=== PATIENT | female | born 1985 | race Caucasian/White ===

== ENCOUNTER 2023-04-15 20:45 | Emergency (ER) | payer BC, SELFPAY ==
--- NOTE | 2023-04-15 20:53 | CRLHL7_ITS ---
For Patients: As a result of the Cures Act, medical imaging exams and procedure reports are released immediately into your electronic medical record. You may view this report before your referring provider. If you have questions, please contact your health care provider. INDICATION: Cough for 1 month TECHNIQUE: Chest radiograph 2 views COMPARISON: 02/11/2020 FINDINGS: Mediastinum: The mediastinum is normal in appearance. The heart silhouette is normal in size and morphology. Lung: Both lungs are unremarkable in appearance. No sign of pleural effusion seen. No pneumothorax is identified. Bone and Soft tissue: Unremarkable for age. IMPRESSION: 1. No acute cardiopulmonary disease is seen. Dictated by: Bienvenido Boswell MD @ 04/15/2023 21:43:34 (Electronically Signed)
[2023-04-15 20:54] VITALS: BP 146/90; PULSE 89; RESP 18; TEMP 36.9; O2SAT 94; BMI 25.1
[2023-04-15 21:43] LABS: PCR FLU A Negative PCR FLU A (Negative); PCR FLU B Negative PCR FLU B (Negative); PCR RSV Negative PCR RSV (Negative)
[2023-04-15 21:44] LABS: SARS PCR* Negative SARS-CoV-2 (Negative)
--- NOTE | 2023-04-15 22:23 | ED_ITS ---
HPI - General Adult General Chief complaint: Cough Stated complaint: Cough Time Seen by Provider: 04/15/23 21:46 Source: patient Mode of arrival: ambulatory Limitations: no limitations History of Present Illness HPI narrative: 37-year-old female presenting to the ED today with concerns of congestion, mucus in her throat, cough: All of these things have been going on for about 1 year. She also describes a burning sensation in her chest that comes and goes. Unsure if this is related to eating or not. None of her symptoms seem to be related to physical activity. She states that recently, in the last month, she feels like she had a cold as her symptoms became worse. She did not have health insurance for quite some time so she has not presented for an evaluation until today. She states that the cough is worse 1st thing in the morning where she has to clear up her throat and she has a lot of mucus that she spits up. Nothing seems to make it better or worse, she has not tried any medications for her symptoms. She complains of a runny nose and congestion. She denies any changes in her appetite, no difficulty sleeping, no unintended weight changes. She is not on any daily medications and has no known chronic medical diagnoses. Patient denies any tobacco use. Related Data Allergies Allergy/AdvReac Type Severity Reaction Status Date / Time No Known Drug Allergies Allergy Verified 04/15/23 20:57 Review of Systems Status of ROS: Reports: 10 or more systems reviewed and unremarkable except as noted in History and below Exam Narrative: Exam Narrative: Well-nourished well-developed patient in no acute distress. Alert and oriented. Answers questions appropriately. Mood and affect are appropriate. Thoughts are goal oriented and rational. No tangential or magical thinking noted. Patient speaks in full sentences without needing to catch her breath. He does not sound congested. HEENT: Normocephalic atraumatic. Pupils are equally round reactive to light. Extraocular muscles are intact. Conjunctivae are moist without any icterus noted. Moist mucous membranes. Posterior pharynx is normal. Neck is soft without any lymphadenopathy or thyromegaly. No masses are appreciated. Patient can breathe through each nostril without difficulty. She has no tenderness across her face or teeth. Cardiovascular: Heart is regular rate and rhythm S1 and S2 are present without any murmurs. Lungs: Clear to auscultation bilaterally no wheezes rhonchi or rales are appreciated. Patient takes deep breaths without any discomfort. Abdomen: Soft and nontender nondistended with normal bowel sounds. Extremities: Bilateral lower extremities are without edema. Skin: Well perfused without any obvious rashes. Const: Vital Signs, click to edit/add: Vital Signs - 24 hr 04/15/23 20:54 Temperature 98.5 F Pulse Rate [Right Pulse Oximeter] 89 Respiratory Rate 18 Blood Pressure [Ri ght Upper Arm] 146/90 H Pulse Oximetry 94 Oxygen Delivery Me thod Room Air Course Course ED Course: Chest x-ray, read by me, does not show any acute pathology. Triple swab is negative. Vital Signs Vital signs: Initial Vital Signs Temperature 98.5 F 04/15/23 20:54 Temperature Source Temporal Artery Scan 04/15/23 20:54 Pulse Rate 89 04/15/23 20:54 Pulse Rhythm Regular 04/15/23 20:54 Pulse Strength 3+ Normal 04/15/23 20:54 Respiratory Rate 18 04/15/23 20:54 Blood Pressure 146/90 H 04/15/23 20:54 Blood Pressure Mean 108 H 04/15/23 20:54 Blood Pressure Position Sitting 04/15/23 20:54 Pulse Oximetry 94 04/15/23 20:54 Oxygen Delivery Method Room Air 04/15/23 20:54 Vital Signs Temperature 98.5 F 04/15/23 20:54 Pulse Rate 89 04/15/23 20:54 Respiratory Rate 18 04/15/23 20:54 Blood Pressure 146/90 H 04/15/23 20:54 Pulse Oximetry 94 04/15/23 20:54 Oxygen Delivery Method Room Air 04/15/23 20:54 Temperature 98.5 F 04/15/23 20:54 Pulse Rate 89 04/15/23 20:54 Respiratory Rate 18 04/15/23 20:54 Blood Pressure 146/90 H 04/15/23 20:54 Pulse Oximetry 94 04/15/23 20:54 Oxygen Delivery Method Room Air 04/15/23 20:54 Medical Decision Making MDM Narrative Medical decision making narrative: 37-year-old female with cough that is worse 1st thing in the morning, burning in her chest and congestion. I do think her symptoms are likely caused by reflux. The other possibility would be seasonal allergies. Right away recommend daily omeprazole as well as daily Flonase. Appropriate way to use Flonase was discussed. I recommend she follow up in the clinic. Lab Data Lab results reviewed: Yes I reviewed the patient's lab results Labs: Lab Results 04/15/23 Range/Units 20:57 SARS-CoV-2 (PCR) Negative SARS-CoV-2 (Negative) Influenza Type A (PCR) Negative PCR FLU A (Negative) Influenza Type B (PCR) Negative PCR FLU B (Negative) RSV (PCR) Negative PCR RSV (Negative) Imaging Data Chest x-ray: Attestation: I have reviewed the pertinent imaging results. Radiologist's impression: TECHNIQUE: Chest radiograph 2 views COMPARISON: 02/11/2020 FINDINGS: Mediastinum: The mediastinum is normal in appearance. The heart silhouette is normal in size and morphology. Lung: Both lungs are unremarkable in appearance. No sign of pleural effusion seen. No pneumothorax is identified. Bone and Soft tissue: Unremarkable for age. IMPRESSION: 1. No acute cardiopulmonary disease is seen. Discharge Plan Discharge Clinical Impression: Nasal congestion, Acid reflux Patient Disposition: Home, Self-Care Condition: Stable Additional Instructions: You seem to have very classic symptoms for acid reflux and/or seasonal allergies. Your chest x-ray was completely normal. At this time recommend you start taking daily omeprazole/Prilosec for reflux. You can buy these [id number]. It will take approximately 2 weeks for you to notice a difference. I also recommend he start using daily Flonase nasal spray. This can also be purchased [id number]. This will dry your nose and decrease the discharge from your nose. After using both medications for at least 2 weeks, you should then follow-up with your primary care provider in the clinic. Stand Alone Forms: [employer] Info Instructions
[2023-04-15 22:50] VITALS: BP 135/81; PULSE 85; RESP 18; TEMP 36.8; O2SAT 96
[2023-04-15 22:51] VITALS: BP 135/81; PULSE 85; RESP 18; TEMP 36.8
== END 2023-04-15 22:51 | disposition home or self-care (01) ==
LOC: ED 22:47
PROVIDERS: Emergency Provider Family Medicine
DX: R09.81 Nasal congestion (principal); K21.9 Gastro-esophageal reflux disease without esophagitis
CPT/HCPCS: 71046; 87631; 99283; 99284

== ENCOUNTER 2024-07-27 06:26 | Emergency (ER) | payer BC, SELFPAY ==
--- OUTSIDE RECORDS SUMMARY | 2024-07-27 06:28 | XMS_ITS | Clinical Summary ---
Author Organization [facility] Address [place], [place] [address] Care Team Providers Care Automatic Clipper Name Role Phone Unknown, Doctor Unavailable Unavailable Dedrick Quezada MD Primary Care Provider [phone] Allergies No known active allergies Medications No known medications Active Problems No known active problems Immunizations Name Administration Dates Next Due DTaP 03/08/1992 Polio Virus, Unspecified 03/08/1992 Tdap 11/25/2013 Social History Tobacco Use Types Packs/Day Years Used Date Smoking Tobacco: Never Smokeless Tobacco: Never Tobacco Cessation:Counseling Given: Yes Alcohol Use Standard Drinks/Week Comments Yes 0 (1 standard drink = 0.6 oz pur e alcohol) occ. PHQ-2 Answer Date Recorded PHQ-2 TOTAL SCORE 0 06/15/2021 Social Connections Answer Date Recorded Frequency of Communication with Friends and Fami ly Not on file 06/15/2021 Financial Resource Strain Answer Date R ecorded Difficulty of Paying Living Expenses Not on file 06/15/2021 Difficulty of Paying Living Expenses Not on file 06/15/2021 Comments No Sex and Gender Information Value Date Recorded Sex Assigned at Not on file Legal Sex Female 5:44 AM CUSTOMER RELATIONSHIP SPECIALIST Gender Identity Not on file Sexual Orientation Not on file Obstetrics History Last Filed Vital Signs Vital Sign Reading Time Taken Comments Blood Pressure 136/92 06/15/2021 2:44 PM C[employer]OMER RELATIONSHIP SPECIALIST Pulse 77 06/15/2021 2:44 PM [employer]ER [employer]ATIONSHIP SPECIALIST Temperature 36.8 C (98.3 F) 06/15/2021 2:44 PM C[employer]ER RELATIONSHIP SPECIALIST Respiratory Rate 14 09/11/2016 10:50 AM CDT Oxygen Saturation 97% 06/15/2021 2:44 PM CUSTOMER RELATIONSHIP SPECIALIST Inhaled Oxygen Concentration - - Weight 69.9 kg (154 lb) 06/15/2021 2:44 PM CUSTOMER RELATIONSHIP SPECIALIST Height 156.2 cm (5' 1.5) 06/15/2021 2:44 PM CUSTOMER RELATIONSHIP SPECIALIST Body Mass Index 28.63 06/15/2021 2:44 PM CUSTOMER RELATIONSHIP SPECIALIST Plan of Treatment Health Maintenance Due Date Last Done Comments HIV for age 15-65 2001 Hepatitis C screening for age 18-79 2004 BMI (ht and wt on same day) for age 18+ 06/15/2022 06/15/2021, 07/21/2018, 08/07/2016, Additional history exists Depression screening for age 12+ 06/16/2022 06/16/2021, 06/15/2021 Pap test for age 21-65 07/03/2022 0, 07/03/2019, 04/15/2017, Additional history exists Tetanus booster 11/26/2023 11/25/2013 COVID-19 vaccine series (2023- season) 2024 Influenza for age 9-49 02/16/2024 Tdap Completed 11/25/2013 Pneumococcal series for age 6-49 Aged Out No longer eligible based on patient's age to complete this topic Medical Devices Implanted Type Area Aluminum Container Tester Device Identifier Shelf Expiration Date Model / Serial / Lot Stent Uret [id number] P[employer]lex [employer] - [id number] Implanted:Qty: 1 on 09/11/2016 by Krishan Leiva MD at [facility] Right: [employer] [facility] 01/26/2019 [id number] / / [id number] Procedures Procedure Name Priority Date/Time Associated Diagnosis Comments PASTRY COOK APPRENTICE THIN PREP PAP SCREEN IMAGED Routine 07/03/2019 12:00 PM CUSTOMER RELATIONSHIP SPECIALIST from Last 3 Months or Most Recently Relevant to Health Maintenance Results * PASTRY COOK APPRENTICE THIN PREP PAP SCREEN IMAGED (07/03/2019 12:00 PM CUSTOMER RELATIONSHIP SPECIALIST) Case Report Gynecologic Cytology Report Case: [id number] Authorizing Provider: Meghan Macedo PA-C Collected: 07/03/2019 1200 Ordering Location: [facility] Received: 07/05/2019 1149 First Screen: Chloe Starr Specimen: PASTRY COOK APPRENTICE ThinPrep Vial Screening, Cervical/Vaginal 07/15/2019 8:43 AM CUSTOMER RELATIONSHIP SPECIALIST [facility] INTERPRETATION/ RESULT NEGATIVE FOR INTRAEPITHELIAL LESION OR MALIGNANCY (NIL) (none) 07/15/2019 8:43 AM CUSTOMER RELATIONSHIP SPECIALIST [facility] [employer] [facility] IMEN ADEQUACY Satisfactory for evaluation Endocervical component present 07/15/2019 8:43 AM CUSTOMER RELATIONSHIP SPECIALIST [facility] [employer] [facility] HPV REQUEST HPV and PAP 07/15/2019 8:43 AM CUSTOMER RELATIONSHIP SPECIALIST [facility] [employer] [facility] Date of LMP 06/08/2019 07/15/2019 8:43 AM CUSTOMER RELATIONSHIP SPECIALIST [facility] [employer] [facility] Last Pap Date 07/15/2019 8:43 AM CUSTOMER RELATIONSHIP SPECIALIST [facility] [employer] [facility] Comment:over 3 years ago Last Pap Result NIL 0 8:43 AM CUSTOMER RELATIONSHIP SPECIALIST [facility] [employer] [facility] Additional Information 07/15/2019 8:43 AM CUSTOMER RELATIONSHIP SPECIALIST [facility] [employer] [facility] Comment: Interpreted at [facility] Cell-A-Spot [facility] Central Laboratory - [address], [place] [address] Automated Review Successful 07/15/2019 8:43 AM [facility] [employer] [facility] Comment:Specimen processed s uccessfully by automated asbestos shingle inspector device, ThinPrep Imaging System, [employer] ANCILLARY TESTING PASTRY COOK APPRENTICE HPV Ordered, Please see separate report 07/15/2019 8:43 AM [facility] [employer] [facility] Note The pap test is a screening technique, not a diagnostic procedure. It is used primarily to screen for squamous cancers and precursor lesions. Published studies have shown that it is subject to both false negative and false positive results. The pap test should not be used as the sole means to diagnose or exclude pre-malignant and malignant lesions. 07/15/2019 8:43 AM [facility] Other (Cervical/Vagina l) 07/03/2019 12:00 PM CUSTOMER RELATIONSHIP SPECIALIST 07/05/2019 11:49 AM CUSTOMER RELATIONSHIP SPECIALIST [facility]TOLOGY Final R esult [facility] [address] [place] [address], from Last 3 Months or Most Recently Relevant to Health Maintenance Insurance [facility] Advance Directives * Full Code (Latest Code Status on File) Date Activated Date Inactivated Comments 09/11/2016 6:18 AM 09/11/2016 1:40 PM Care Teams Automatic Clipper Relationship Specialty Start Date End Date Dedrick Quezada MD [address] [place] [address] PCP - General Family Practice 10/31/15 Unknown, Doctor . 01/12/08
--- OUTSIDE RECORDS SUMMARY | 2024-07-27 06:28 | XMS_ITS | Clinical Summary ---
Author Organization [facility] Address [address] [place] [id number] Care Team Providers Care Riding Double Name Role Phone Gissel Pimentel APRN, C.N.P. Primary Care Pro vider Source Comments Patient records contain information from all sites at [facility]. For routine questions regarding patient records, call [phone] during business hours, M-F 8:00 AM - 5:00 PM Central Time. Record requests for emergency care only can be directed to [phone] at any time.[facility] Allergies No known active allergies Medications triamcinolone (Kenalog) 0.1 % cream Apply 1 Application topically 3 (three) times a day. 4 Active ipratropium (Atrovent) 21 mcg (0.03 %) nasal spray Administer 2 sprays into each nostril 3 (three) times a day as needed for rhinitis. 30 mL 11 4 Active Active Problems Problem Noted Date Diagnosed Date Migraine Headache 02/10/2020 Migraine Headache With Aura Prolonged 02/10/2020 Dysarthria 02/10/2020 Encounters Date Type Department Care Team Description 05/21/2024 Orders Only [facility] Gissel Pimentel APRN, C.N.P. Screening Lipid from Last 3 Months Immunizations Immunization Administration Dates Next Due DTaP (Infanrix, Tripedia) 03/08/1992 Influenza, Unspecified 07/11/2021(Deferred: Othe r) Polio, Unspecified 03/08/1992 SARS-COV-2 (COVID-19) - PFIZ ER (Discontinued)(12 years or older) 07/11/2021(Deferred: Patient decision) Tdap 11/25/2013 influenza vaccine quad (FLUZONE/FLUARIX) (6 months and older)(PF) 07/11/2021(Deferred: Patient decision) Family History Medical History Relation Name Comments Hypertension Father Isaiah Coronary artery disease Mother Lorenza Diabetes Mother Lorenza Relation Name Status Comments Father Isaiah Mother Lorenza Social History Tobacco Use Types Packs/Day Years Used Date Smoking Tobacco: Never Smokeless Tobacco: Never Tobacco Cessation:Counseling Given: Not Answered Alcohol Use Standard Drinks/Week Comments Yes 0 (1 standard drink = 0.6 oz pur e alcohol) Social Humiliation, Afraid, Rape, and Kick questionnair e Answer Date Recorded Within the last year, have y ou been afraid of your partner or ex-partner? No 08/08/2021 Within the last year, have y ou been humiliated or emotionally abused in other ways by your partner or ex-partner? No Within the last year, have y ou been kicked, hit, slapped, or otherwise physically hurt by your partner or ex-partner? No 08/08/2021 Within the last year, have y ou been raped or forced to have any kind of sexual activity by your partner or ex-partner? No 08/08/2021 Social Connection and Isolat ion Panel [NHANES] Answer Date Recorded In a typical week, how many times do you talk on the phone with family, friends, or neighbors? More than three times a week 08/08/2021 How often do you get togethe r with friends or relatives? More than three times a week 08/08/2021 How often do you attend chur Mayi [employer] or methodist services? Never 08/08/2021 Do you belong to any clubs o r organizations such as gnosticist groups, unions, fraternal or athletic groups, or school groups? No 08/08/2021 How often do you attend meet ings of the clubs or organizations you belong to? Never 08/08/2021 Are you , , di vorced, , never , or living with a partner? Living with partner 08/08/2021 AUDIT-C Answer Date Recorded Q1: How often do you have a drink containing alc ohol? 2-4 times a month 08/08/2021 Q2: How many drinks containi ng alcohol do you have on a typical day when you are drinking? 1 or 2 08/08/2021 Q3: How often do you have si x or more drinks on one occasion? Never 08/08/2021 Overall Financial Resource Strain (CARDIA) Answe r Date Recorded How hard is it for you to pa y for the very basics like food, housing, medical care, and heating? Not very hard 08/08/2021 PHQ-2 Answer Date Recorded PHQ-2 Score 0 07/11/2021 [facility] - Occupational Stress Questionnaire Answer Date Recorded Do you feel stress - tense, restless, nervous, or anxious, or unable to sleep at night because your mind is troubled all the time - these days? To some extent 08/08/2021 Exercise Vital Sign Answer Date Recorde d On average, how many days pe r week do you engage in moderate to strenuous exercise (like a brisk walk)? 4 days 08/08/2021 On average, how many minutes do you engage in exercise at this level? 20 min 08/08/2021 Hunger Vital Sign Answer Date Recorded Within the past 12 months, y ou worried that your food would run out before you got the money to buy more. Never true 08/08/19 Within the past 12 months, t he food you bought just didn't last and you didn't have money to get more. Never true 08/08/2021 PRAPARE - Transportation Answer Date Re corded In the past 12 months, has l ack of transportation kept you from medical appointments or from getting medications? No 07/19 In the past 12 months, has l ack of transportation kept you from meetings, work, or from getting things needed for daily living? No 08/08/2021 Housing Stability Vital Sign Answer Dion e Recorded In the last 12 months, was t here a time when you were not able to pay the mortgage or rent on time? No 08/08/2021 In the last 12 months, how many places have you lived? 1 08/08/2021 In the last 12 months, was t here a time when you did not have a steady place to sleep or slept in a alf (including now)? No 08/08/2021 Nutrition Answer Date Recorded On average, how many serving s of fruits and vegetables do you eat per day (serving size is equal to 1 cup or approximately the size of a tennis ball)? 2-3 08/08/2021 Dental Answer Date Recorded Dental: Regular Dentist Yes 08/08/19 Employment Answer Date Recorded Employment status Employed and actively working without restrictions 08/08/2021 Education Answer Date Recorded What is the highest level of school you have completed or the highest degree you have received? 12th grade 08/08/2021 Comments Unknown Sex and Gender Information Value Date Recorded Sex Assigned at Female 07/11/2021 2:45 PM TRACK WELDER Legal Sex Female 4:02 PM TRACK WELDER Gender Identity Female 07/11/2021 2:45 PM TRACK WELDER Sexual Orientation Straight 07/11/2021 2: 45 PM TRACK WELDER Last Filed Vital Signs Vital Sign Reading Time Taken Comments Blood Pressure 127/79 03/26/2024 9:36 AM CDT Pulse 82 03/26/2024 9:36 AM CDT Temperature 36.4 C (97.5 F) 03/26/2024 9:36 AM CDT Respiratory Rate 16 07/11/2021 2:35 PM TRACK WELDER Oxygen Saturation 98% 03/26/2024 9:36 AM CDT Inhaled Oxygen Concentration - - Weight 68.8 kg (151 lb 9.6 oz) 03/26/2024 9:36 A M CDT Height 157 cm (5' 1.81) 03/26/2024 9:36 AM CDT Body Mass Index 27.9 03/26/2024 9:36 AM CDT Plan of Treatment Health Maintenance Due Date Last Done Comments HIV Screening 1985 Hepatitis C Screening 1985 IPV Vaccines (2 of 3 - 4-dos e series) 04/05/1992 03/08/1992 Hepatitis B Vaccines (1 of 3 - 19+ 3-dose series) 2005 Lipid (Cholesterol) Screening 11/25/2018 11/25/2013 DTaP,Tdap,and Td Vaccines (3 - Td or Tdap) 11/26/2023 11/25/2013, 03/08/1992 COVID-19 Vaccine (1 - 2023-2 5 season) 2024 Influenza Vaccine (#1) 2024 Depression Screening (Annual PHQ-2) 06/17/2024 Cervical/Vaginal Cancer Screening 07/03/2024 07/03/2019, 08/14/2016, 11/25/2013 HPV Vaccines Aged Out No longer eligi ble based on patient's age to complete this topic Pneumococcal vaccine (0-49 years) Aged Out No longer eligible b ased on patient's age to complete this topic Procedures Procedure Name Priority Date/Time Associated Diagnosis Comments PATHOLOGY DAIRY HUSBANDMAN CYTOLOGY Routine 08/14/2016 12:00 AM TRACK WELDER CHOLESTEROL, TOTAL, S Routine 11/25/2013 3:35 PM CDT from Last 3 Months or Most Recently Relevant to Health Maintenance Results * Pathology DAIRY HUSBANDMAN Cytology (08/14/2016 12:00 AM TRACK WELDER) 08/14/2016 Narrative [facility] - 08/23/2016 2:11 PM TRACK WELDER in [address] [place] [id number] Patient Name: ABI JUAN Collected: 08/14/2016 Address: [facility]/State/Zip: [address] [place] [id number] Received: Reported: 08/15/2016 08/23/2016 Soc. Sec. #: /Age/Sex 1985 (Age: 31) F Physician(s): DANIELLE VIVEROS MD Copy To: [facility] [id number] [place] [id number] CYTOPATHOLOGY DAIRY HUSBANDMAN REPORT FINAL CYTOLOGIC DIAGNOSIS Pap Smear - ThinPrep with HPV: NEGATIVE FOR INTRAEPITHELIAL LESION OR MALIGNANCY REACTIVE/REPARATIVE CHANGES. MODERATE INFLAMMATION. ENDOCERVICAL CELLS/COMPONENT PRESENT. SATISFACTORY SPECIMEN FOR EVALUATION. This specimen required a physician interpretation under CLIA 1987 Electronically Signed Out By [facility]/08/23/2016 HAIR ALTAMIRANO M.D. AM Emircar [place](ASCP) The Pap test is a screening procedure and, as such, is subject to both false positive and false negative results as evidenced by published data. It is not a diagnostic test and results should be interpreted in the context of the patient's history and other clinical findings. Obtaining periodic Pap tests may help to minimize the consequences of any false negatives that may occur. Procedures/Addenda: HUMAN PAPILLOMA VIRUS ADDENDUM Date Ordered: 08/15/2016 Status: Signed Out Date Complete: 08/23/2016 By: ANGIE JORDAN(ASCP) Date Reported: 08/23/2016 INTERPRETATION: Test: Aptima High Risk HPV Result: NEGATIVE FOR HIGH RISK HPV Specimen Description: ThinPrep Pap Test PreservCyt Solution HPV by [employer] Team Lead-Mediated Amplification (TMA) for E6/E7 viral messenger RNA (mRNA) is an in-vitro diagnostic test for the detection of 14 high-risk Human Papillomavirus (HPV) types (16, 18, 31, 33, 35, 39, 45, 51, 52, 56, 58, 59, 66, and 68) in cervical specimen. Intended for co-testing or reflex testing of ASC-US Pap smears. Interpretation for patients with ASC-US cytology: Low likelihood of underlying high-grade CIN2-3 or cancer; results are not intended to prevent women from proceeding to colposcopy. Interpretation for patients with NILM cytology who are over 30 years old: Very low likelihood of underlying high-grade GISSELLE or cancer; results do not preclude future HPV infection or cytologic abnormalities with underlying CIN2-3 or cancer. SPECIMEN(S) RECEIVED: Pap Smear - ThinPrep with HPV CLINICAL HISTORY: Date of Last PAP: 11/25/2013 Date of Last Menstrual Period: 08/03/2016 Other Clinical Conditions: HPV TYPING REQUESTED us Adria Viveros M.D. LAB PAP COPATH ORDERABLE S Final Result [facility] * Cholesterol, Total (11/25/2013 3:35 PM CDT) Cholesterol, Total 136 <=199 MGDL POWERCHART Comment: The National Cholesterol Education Program (NCEP) has set the following guidelines for Cholesterol in adults age 18 and up: Desirable < 200 mg/dL Borderline High 200-239 mg/dL High > or = 240 mg/dL The National Cholesterol Education Program (NCEP) has set the following guidelines for Cholesterol in children ages 2 to 17: Desirable < 170 mg/dL Borderline High 170-199 mg/dL High > or = 200 mg/dL Blood 11/25/2013 3:35 PM CDT us Dedrick Quezada M.D. LAB BLOOD ADD-ON Final Re sult POWERCHART from Last 3 Months or Most Recently Relevant to Health Maintenance Insurance [facility] Care Teams Riding Double Relationship Specialty Start Date End Date Gissel Pimentel APRN, C.N.P. [address] [place] [phone] PCP - General 03/15/23
[2024-07-27 06:46] VITALS: BP 123/82; PULSE 78; RESP 18; TEMP 36.7; O2SAT 99; BMI 29.4
--- NOTE | 2024-07-27 07:15 | CRLHL7_ITS ---
For Patients: As a result of the Century Cures Act, medical imaging exams and procedure reports are released immediately into your electronic medical record. You may view this report before your referring provider. If you have questions, please contact your health care provider. INDICATION: Left chest pain TECHNIQUE: Chest 2 views COMPARISON: 04/15/2023 FINDINGS: Cardiovascular and mediastinum: Heart size and vasculature are normal in caliber and appearance. Lungs and pleural spaces: Lungs are clear. No sign of infiltrate or mass. No sign of pleural effusion. No pneumothorax. Bones and soft tissues: No significant findings. IMPRESSION: No acute findings. Dictated by Kali Quick MD @ 07/27/2024 8:21:02 AM (Electronically Signed)
--- NOTE | 2024-07-27 07:21 | ED_ITS ---
HPI - General Adult General Chief complaint: Chest Pain <Kelsy Mccrary MD - Last Filed: 08/03/24 23:55> Stated complaint: chest pain <Kelsy Mccrary MD - Last Filed: 08/03/24 23:55> Time Seen by Provider: 07/27/24 07:01 <Kelsy Mccrary MD - Last Filed: 08/03/24 23:55> Source: patient <Kelsy Mccrary MD - Last Filed: 08/03/24 23:55> Mode of arrival: ambulatory <Kelsy Mccrary MD - Last Filed: 08/03/24 23:55> Limitations: no limitations <Kelsy Mccrary MD - Last Filed: 08/03/24 23:55> History of Present Illness HPI narrative: 31-year-old female with no prior cardiac disease presents to the emergency department for evaluation of left chest pain which has been ongoing for the past 3 days, worsening this morning at 5:30 a.m.. Not exertional, worse with deep breath and movement. The left anterior central chest area. No productive cough, no fever, no hemoptysis. No trauma or injury. Feels similar to when she was diagnosed with pleurisy in the past. No history of DVT or PE. Has not tried taking any Tylenol or ibuprofen to help with her symptoms. No fever or recent illness, pain does not radiate. No shortness of breath but it does hurt to take a deep breath. No GI symptoms. Past medical history benign per her report. No prior chest or abdominal surgeries. No long-term medications, no allergies. Nonsmoker. ROS is notable for the chest symptoms as described above only, otherwise denies times 12 systems. <Kelsy Mccrary MD - Last Filed: 08/03/24 23:55> Related Data Home medications: Previous Rx's ?Medication ?Instructions ?Recorded ketorolac 10 mg tablet 10 mg PO Q8H 5 days #15 tabs 07/27/24 <Kelsy Mccrary MD - Last Filed: 08/03/24 23:55> Allergies/adverse reactions: Allergies Allergy/AdvReac Type Severity Reaction Status Date / Time No Known Drug Allergies Allergy Verified 07/27/24 06:53 <Kelsy Mccrary MD - Last Filed: 08/03/24 23:55> [facility] Medical History: Medical History No significant past medical history <Kelsy Mccrary MD - Last Filed: 08/03/24 23:55> Surgical History: Surgical History No significant past surgical history <Kelsy Mccrary MD - Last Filed: 08/03/24 23:55> Social History: Social History Smoking Status: Never smoker Second hand tobacco smoke exposure: No How often do you have a drink containing alcohol: never How often do you have six or more drinks on one occasion: Never AUDIT-C Alcohol total score: 0 Non-prescribed substance use: denies use <Kelsy Mccrary MD - Last Filed: 08/03/24 23:55> Exam Const: Vital Signs, click to edit/add: Vital Signs - 24 hr 07/27/24 06:46 Temperature 98.0 F Pulse Rate [Pulse Oximeter] 78 Respiratory Rate 18 Blood Pressure [Ri ght Upper Arm] 123/82 Pulse Oximetry 99 Oxygen Delivery Me thod Room Air <Kelsy Mccrary MD - Last Filed: 08/03/24 23:55> Vital Signs, click to edit/add: Vital Signs - 24 hr 07/27/24 06:46 Temperature 98.0 F Pulse Rate [Pulse Oximeter] 78 Respiratory Rate 18 Blood Pressure [Ri ght Upper Arm] 123/82 Pulse Oximetry 99 Oxygen Delivery Me thod Room Air <Favian Houston MD - Last Filed: 07/27/24 09:13> Documenting provider has reviewed patient's vital signs: yes <Kelsy Mccrary MD - Last Filed: 08/03/24 23:55> Common normals: no apparent distress and alert <Kelsy Mccrary MD - Last Filed: 08/03/24 23:55> General appearance: cooperative, comfortable and well kempt <MD Sandra Fitzpatrick Last Filed: 08/03/24 23:55> HENMT: Common normals: normocephalic, moist oral mucous membranes and oropharynx normal <MD Sandra Fitzpatrick Last Filed: 08/03/24 23:55> Head and scalp: normocephalic <MD Sandra Fitzpatrick Last Filed: 08/03/24 23:55> Mouth: oral and palatal mucosa normal <MD Sandra Fitzpatrick Last Filed: 08/03/24 23:55> Throat: posterior oropharynx normal <MD Sandra Fitzpatrick Last Filed: 08/03/24 23:55> Eye: Common normals: EOMs intact bilaterally and conjunctivae normal <MD Sandra Fitzpatrick Last Filed: 08/03/24 23:55> General eye: normal appearance of both eyes <MD Sandra Fitzpatrick Last Filed: 08/03/24 23:55> Conjunctiva: conjunctiva(e) normal <MD Sandra Fitzpatrick Last Filed: 08/03/24 23:55> Neck & C-Spine: Common normals: full ROM and no lymphadenopathy <MD Sandra Fitzpatrick Last Filed: 08/03/24 23:55> Chest: Common normals: inspection of chest normal and palpation of chest normal <MD Sandra Fitzpatrick Last Filed: 08/03/24 23:55> Resp: Common normals: normal respiratory effort, no use of accessory muscles and clear to auscultation bilaterally <MD Sandra Fitzpatrick Last Filed: 08/03/24 23:55> Effort & inspection: able to speak in complete sentences <MD Sandra Fitzpatrick Last Filed: 08/03/24 23:55> Auscultation: clear to auscultation bilaterally <MD Sandra Fitzpatrick Last Filed: 08/03/24 23:55> Cardio: Common normals: regular rate, regular rhythm, S1 normal heart sound, S2 normal heart sound and no murmurs <MD Sandra Fitzpatrick Last Filed: 08/03/24 23:55> Rate: regular rate <Kelsy Mccrary MD - Last Filed: 08/03/24 23:55> Rhythm: regular rhythm <Kelsy Mccrary MD - Last Filed: 08/03/24 23:55> Heart sounds: S1 normal and S2 normal <Kelsy Mccrary MD - Last Filed: 08/03/24 23:55> GI: Common normals: Normal to inspection, nondistended, normoactive bowel sounds present, soft to palpation, non-tender, no hepatosplenomegaly and no masses <Kelsy Mccrary MD - Last Filed: 08/03/24 23:55> Palpation: soft and no hepatosplenomegaly <Kelsy Mccrary MD - Last Filed: 08/03/24 23:55> Extremity: Common normals: normal to inspection, full ROM and no pedal edema <Kelsy Mccrary MD - Last Filed: 08/03/24 23:55> Neuro: Sensorium/orientation: alert <Kelsy Mccrary MD - Last Filed: 08/03/24 23:55> Speech: speech normal <Kelsy Mccrary MD - Last Filed: 08/03/24 23:55> Motor exam: no movement abnormalities noted <Kelsy Mccrary MD - Last Filed: 08/03/24 23:55> Psych: Common normals: speech normal <Kelsy Mccrary MD - Last Filed: 08/03/24 23:55> Appearance: well kempt <Kelsy Mccrary MD - Last Filed: 08/03/24 23:55> Attitude: engaged <Kelsy Mccrary MD - Last Filed: 08/03/24 23:55> Activity/motor behavior: appropriate eye contact <MD Sandra Fitzpatrick Last Filed: 08/03/24 23:55> Speech: normal speech <MD Sandra Fitzpatrick Last Filed: 08/03/24 23:55> Mood and affect: euthymic mood <Kelsy Mccrary MD - Last Filed: 08/03/24 23:55> Insight: insight good <Kelsy Mccrary MD - Last Filed: 08/03/24 23:55> Judgement: judgment good <Kelsy Mccrary MD - Last Filed: 08/03/24 23:55> Skin: Common normals: no rashes or lesions noted <Kelsy Mccrary MD - Last Filed: 08/03/24 23:55> General skin exam: no rashes or lesions noted <Kelsy Mccrary MD - Last Filed: 08/03/24 23:55> Course Course ED Course: 39-year-old female with pleuritic seeming left chest pain that is worse with deep breath. And nonexertional. Differential diagnosis including pleurisy, pericardial effusion, pericarditis, pulmonary embolism, acute coronary syndrome, pneumonia, bronchitis, musculoskeletal etiology, amongst others. Will give Toradol and cyclobenzaprine for pain. Have pain chest x-ray, flu swab, D- dimer, CRP, typical cardiac and basic labs. Await findings. <Kelsy Mccrary MD - Last Filed: 08/03/24 23:55> Vital Signs Vital signs: Initial Vital Signs Temperature 98.0 F 07/27/24 06:46 Temperature Source Temporal Artery Scan 07/27/24 06:46 Pulse Rate 78 07/27/24 06:46 Respiratory Rate 18 07/27/24 06:46 Blood Pressure 123/82 07/27/24 06:46 Blood Pressure Mean 95 07/27/24 06:46 Blood Pressure Position Sitting 07/27/24 06:46 Pulse Oximetry 99 07/27/24 06:46 Oxygen Delivery Method Room Air 07/27/24 06:46 Vital Signs Temperature 98.0 F 07/27/24 06:46 Pulse Rate 78 07/27/24 06:46 Respiratory Rate 18 07/27/24 06:46 Blood Pressure 123/82 07/27/24 06:46 Pulse Oximetry 99 07/27/24 06:46 Oxygen Delivery Method Room Air 07/27/24 06:46 Temperature 98.0 F 07/27/24 06:46 Pulse Rate 78 07/27/24 06:46 Respiratory Rate 18 07/27/24 06:46 Blood Pressure 123/82 07/27/24 06:46 Pulse Oximetry 99 07/27/24 06:46 Oxygen Delivery Method Room Air 07/27/24 06:46 <Kelsy Mccrary MD - Last Filed: 08/03/24 23:55> Initial Vital Signs Temperature 98.0 F 07/27/24 06:46 Temperature Source Temporal Artery Scan 07/27/24 06:46 Pulse Rate 78 07/27/24 06:46 Respiratory Rate 18 07/27/24 06:46 Blood Pressure 123/82 07/27/24 06:46 Blood Pressure Mean 95 07/27/24 06:46 Blood Pressure Position Sitting 07/27/24 06:46 Pulse Oximetry 99 07/27/24 06:46 Oxygen Delivery Method Room Air 07/27/24 06:46 Vital Signs Temperature 98.0 F 07/27/24 06:46 Pulse Rate 78 07/27/24 06:46 Respiratory Rate 18 07/27/24 06:46 Blood Pressure 123/82 07/27/24 06:46 Pulse Oximetry 99 07/27/24 06:46 Oxygen Delivery Method Room Air 07/27/24 06:46 Temperature 98.0 F 07/27/24 06:46 Pulse Rate 78 07/27/24 06:46 Respiratory Rate 18 07/27/24 06:46 Blood Pressure 123/82 07/27/24 06:46 Pulse Oximetry 99 07/27/24 06:46 Oxygen Delivery Method Room Air 07/27/24 06:46 <Favian Houston MD - Last Filed: 07/27/24 09:13> Medications Administered Medications: Discontinued Medications Generic Name Dose Route Start Last Admin Trade Name Freq PRN Reason Stop Dose Admin Cyclobenzaprine HCl 5 mg 07/27/24 07:14 07/27/24 07:43 Cyclobenzaprine Hcl 10 Mg Tablet PO 07/27/24 07:15 5 mg ONCE ONE Administration Ketorolac Tromethamine 10 mg 07/27/24 07:14 07/27/24 07:43 Ketorolac 10 Mg Tablet PO 07/27/24 07:15 10 mg ONCE ONE Administration <Kelsy Mccrary MD - Last Filed: 08/03/24 23:55> Discontinued Medications Generic Name Dose Route Start Last Admin Trade Name Freq PRN Reason Stop Dose Admin Cyclobenzaprine HCl 5 mg 07/27/24 07:14 07/27/24 07:43 Cyclobenzaprine Hcl 10 Mg Tablet PO 07/27/24 07:15 5 mg ONCE ONE Administration Ketorolac Tromethamine 10 mg 07/27/24 07:14 07/27/24 07:43 Ketorolac 10 Mg Tablet PO 07/27/24 07:15 10 mg ONCE ONE Administration <Favian Houston MD - Last Filed: 07/27/24 09:13> Medical Decision Making MDM Narrative Medical decision making narrative: Lab and imaging results for this patient returned normal including normal EKG. Her symptoms are reproducible suggesting chest wall pain. <Favian Houston MD - Last Filed: 07/27/24 09:13> Lab Data Lab results reviewed: Yes I reviewed the patient's lab results <Kelsy Mccrary MD - Last Filed: 08/03/24 23:55> Labs: Lab Results 07/27/24 Range/Units 07:55 WBC 7.56 (4.50-11.00) K/uL RBC 4.54 (4.00-5.20) m/uL Hgb 13.6 (12.0-16.0) gm/dL Hct 40.5 (33.0-51.0) % MCV 89 (80-100) fL MCH 30 (26-34) pg MCHC 34 (32-36) gm/dL RDW Coeff of Manisha 12.7 (11.5-15.5) % Plt Count 300 (140-440) K/uL Neut % (Auto) 63.4 (42.0-72.0) % Lymph % (Auto) 28.8 (20-44) % [place] % (Auto) 5.6 (0.0-11.0) % Eos % (Auto) 1.5 (0.0-7.0) % Baso % (Auto) 0.4 (0.0-3.0) % Neut # (Auto) 4.80 (1.7-7.0) K/uL Lymph # (Auto) 2.18 (0.90-2.90) K/uL [place] # (Auto) 0.40 (0.00-0.90) K/UL Eos # (Auto) 0.11 (0.00-0.50) K/uL Baso # (Auto) 0.03 (0.00-0.30) K/uL Abs Immat Gran (auto) 0.02 (0.00-0.30) K/uL Imm/Tot Granulo (auto) 0.3 % D-Dimer Quant (PE/DVT) < 0.27 (0.00-0.50) ug/ml Sodium 138 (135-149) mmol/L Potassium 4.2 (3.6-5.1) mmol/L Chloride 106 (96-114) mmol/L Carbon Dioxide 24 (20-32) mmol/L Anion Gap 8 (7-15) mEq/L BUN 12 (5-24) mg/dL Creatinine 0.6 (0.5-1.5) mg/dL Estimated Creat Clear 95.93 Estimated GFR 118 ml/min Glucose 99 (60-115) mg/dL Calcium 9.0 (8.4-10.6) mg/dL NT-Pro-B Natriuret Pep 83 pg/mL POC Troponin I 0.00 L (0.01-0.04) ng/ml <Kelsy Mccrary MD - Last Filed: 08/03/24 23:55> Lab Results 07/27/24 Range/Units 07:55 WBC 7.56 (4.50-11.00) K/uL RBC 4.54 (4.00-5.20) m/uL Hgb 13.6 (12.0-16.0) gm/dL Hct 40.5 (33.0-51.0) % MCV 89 (80-100) fL MCH 30 (26-34) pg MCHC 34 (32-36) gm/dL RDW Coeff of Manisha 12.7 (11.5-15.5) % Plt Count 300 (140-440) K/uL Neut % (Auto) 63.4 (42.0-72.0) % Lymph % (Auto) 28.8 (20-44) % [place] % (Auto) 5.6 (0.0-11.0) % Eos % (Auto) 1.5 (0.0-7.0) % Baso % (Auto) 0.4 (0.0-3.0) % Neut # (Auto) 4.80 (1.7-7.0) K/uL Lymph # (Auto) 2.18 (0.90-2.90) K/uL [place] # (Auto) 0.40 (0.00-0.90) K/UL Eos # (Auto) 0.11 (0.00-0.50) K/uL Baso # (Auto) 0.03 (0.00-0.30) K/uL Abs Immat Gran (auto) 0.02 (0.00-0.30) K/uL Imm/Tot Granulo (auto) 0.3 % D-Dimer Quant (PE/DVT) < 0.27 (0.00-0.50) ug/ml Sodium 138 (135-149) mmol/L Potassium 4.2 (3.6-5.1) mmol/L Chloride 106 (96-114) mmol/L Carbon Dioxide 24 (20-32) mmol/L Anion Gap 8 (7-15) mEq/L BUN 12 (5-24) mg/dL Creatinine 0.6 (0.5-1.5) mg/dL Estimated Creat Clear 95.93 Estimated GFR 118 ml/min Glucose 99 (60-115) mg/dL Calcium 9.0 (8.4-10.6) mg/dL NT-Pro-B Natriuret Pep 83 pg/mL POC Troponin I 0.00 L (0.01-0.04) ng/ml <Favian Houston MD - Last Filed: 07/27/24 09:13> Imaging Data Chest x-ray: Radiologist's impression: No acute findings. <Favian Houston MD - Last Filed: 07/27/24 09:13> ECG Data Attestation: I personally reviewed and interpreted this ECG as follows: <Favian Houston MD - Last Filed: 07/27/24 09:13> Interpretation: Normal sinus rhythm. Rate is 66 beats per minute. There are no ST or T- wave abnormalities. <Favian Houston MD - Last Filed: 07/27/24 09:13> Discharge Plan Discharge Clinical Impression: Pleuritic chest pain <Kelsy Mccrary MD - Last Filed: 08/03/24 23:55> Patient Disposition: Home w/ Parent or Adult <Kelsy Mccrary MD - Last Filed: 08/03/24 23:55> Condition: Improved <Kelsy Mccrary MD - Last Filed: 08/03/24 23:55> Instructions: Pleurisy (ED) <Kelsy Mccrary MD - Last Filed: 08/03/24 23:55> Additional Instructions: Take medication as needed and directed. Activity as tolerated. Follow up with MD return if worsening. <Kelsy Mccrary MD - Last Filed: 08/03/24 23:55> Activity Level: No Restrictions <Kelsy Mccrary MD - Last Filed: 08/03/24 23:55> No Restrictions <Favian Houston MD - Last Filed: 07/27/24 09:13> Discharge Diet: Regular <Kelsy Mccrary MD - Last Filed: 08/03/24 23:55> Regular <Favian Houston MD - Last Filed: 07/27/24 09:13> Prescriptions: New ketorolac 10 mg tablet 10 mg PO Q8H 5 Days Qty: 15 0RF <Kelsy Mccrary MD - Last Filed: 08/03/24 23:55> Follow Up/Referrals: Provider,Not a Local [Primary Care Provider] - <Kelsy Mccrary MD - Last Filed: 08/03/24 23:55> Stand Alone Forms: MyHealth Info Instructions <Kelsy Mccrary MD - Last Filed: 08/03/24 23:55>
--- OUTSIDE RECORDS SUMMARY | 2024-07-27 07:29 | XMS_ITS | Clinical Summary ---
Author Organization [facility] Address [place], [place] [address] Care Team Providers Care Model Technician Name Role Phone Unknown, Doctor Unavailable Unavailable Dedrick Quezada MD Primary Care Provider Allergies No known active allergies Medications No [...] on file Legal Sex Female 5:44 AM INVOICE CODER Gender Identity Not on file Sexual Orientation Not on file Obstetrics History Last Filed Vital Signs Vital Sign Reading Time Taken Comments Blood Pressure 136/92 06/15/2021 2:44 PM INVOICE CODER Pulse 77 06/15/2021 2:44 PM INVOICE CODER Temperature 36.8 C (98.3 F) 06/15/2021 2:44 PM INVOICE CODER Respiratory Rate 14 09/11/2016 10:50 AM CDT Oxygen Saturation 97% 06/15/2021 2:44 PM INVOICE CODER Inhaled Oxygen Concentration - - Weight 69.9 kg (154 lb) 06/15/2021 2:44 PM INVOICE CODER Height 156.2 cm (5' 1.5) 06/15/2021 2:44 PM INVOICE CODER Body Mass Index 28.63 06/15/2021 2:44 PM INVOICE CODER Plan of Treatment Health Maintenance Due Date [...] this topic Medical Devices Implanted Type Area Pharmacy Operations Coordinator Device Identifier Shelf Expiration Date Model / Serial / Lot Stent Uret [id number] Percuflex Hydroplus - [id number] Implanted:Qty: 1 on 09/11/2016 by Krishan Leiva MD at [facility] Right: [employer] [facility] 01/26/2019 [id number] / / [id number] Procedures Procedure Name Priority Date/Time Associated Diagnosis Comments TONGUE AND GROOVE MACHINE SETTER THIN PREP PAP SCREEN IMAGED Routine 07/03/2019 12:00 PM INVOICE CODER from Last 3 Months or Most Recently Relevant to Health Maintenance Results * TONGUE AND GROOVE MACHINE SETTER THIN PREP PAP SCREEN IMAGED (07/03/2019 12:00 PM INVOICE CODER) Case Report Gynecologic Cytology Report Case: [id number] Authorizing Provider: Meghan Maecdo PA-C Collected: 07/03/2019 1200 Ordering Location: [facility] Received: 07/05/2019 1149 First Screen: Chloe Starr Specimen: TONGUE AND GROOVE MACHINE SETTER ThinPrep Vial Screening, Cervical/Vaginal 07/15/2019 8:43 AM INVOICE CODER [facility] ENTRAL LABORATORY INTERPRETATION/ RESULT NEGATIVE FOR INTRAEPITHELIAL LESION OR MALIGNANCY (NIL) (none) 07/15/2019 8:43 AM INVOICE CODER [facility] [employer] ENTRAL LABORATORY IMEN ADEQUACY Satisfactory for evaluation Endocervical component present 07/15/2019 8:43 AM INVOICE CODER [facility] [employer] ENTRAL LABORATORY HPV REQUEST HPV and PAP 07/15/2019 8:43 AM INVOICE CODER [facility] [employer] [facility] ENTRAL LABORATORY Date of LMP 06/08/2019 07/15/2019 8:43 AM INVOICE CODER [facility] [facility] ENTRAL LABORATORY Last Pap Date 07/15/2019 8:43 AM INVOICE CODER [facility] [employer] [facility] ENTRAL LABORATORY Comment:over 3 years ago Last Pap Result NIL 0 8:43 AM INVOICE CODER [facility] [employer] [facility] EN[facility] LABORATORY Additional Information 07/15/2019 8:43 AM INVOICE CODER [facility] [employer] [facility] ENTRAL LABORATORY Comment: Interpreted at [facility] Central Laboratory - [address], [place] [address] Automated Review Successful 07/15/2019 8:[address] [facility] [employer] [facility] ENTRSC LABORATORY Comment:Specimen processed s uccessfully by automated log check scaler device, ThinPrep Imaging System, [employer] ANCILLARY TESTING TONGUE AND GROOVE MACHINE SETTER HPV Ordered, Please see separate report 07/15/2019 8:[address] [facility] [employer] [facility] LAB[facility]AT[facility] Note The pap test is a screening technique, not a diagnostic procedure. It is used primarily to screen for squamous cancers and precursor lesions. Published studies have shown that it is subject to both false negative and false positive results. The pap test should not be used as the sole means to diagnose or exclude pre-malignant and malignant lesions. 07/15/2019 8:43 AM [facility] Other (Cervical/Vagina l) 07/03/2019 12:00 PM INVOICE CODER 07/05/2019 11:49 AM INVOICE CODER [facility]/CYTOLOGY Final R esult [facility] LABORATORY-CENTRAL LABORATORY [address] [place] [address], from Last 3 Months or Most Recently Relevant to Health Maintenance Insurance [facility] Advance Directives * Full Code (Latest Code Status on File) Date Activated Date Inactivated Comments 09/11/2016 6:18 AM 09/11/2016 1:40 PM Care Teams Model Technician Relationship Specialty Start Date End Date Dedrick Quezada MD [address] [place] [address] PCP - General Family Practice 10/31/15 Unknown, Doctor . 01/12/08
--- OUTSIDE RECORDS SUMMARY | 2024-07-27 07:29 | XMS_ITS | Clinical Summary ---
Author Organization [facility] Address [address] [place] [address] Care Team Providers Care Supervisor Customer Services Name Role Phone Gissel Pimentel APRN, C.N.P. Primary Care Pro vider Source Comments Patient records contain information from all sites at [facility]. For routine questions regarding patient records, call [phone] during business hours, M-F 8:00 AM - 5:00 PM Central Time. Record requests for emergency care only can be directed to [phone] at any time.[facility] Allergies No known active allergies Medications [...] 08/08/2021 How often do you attend chur [employer] or methodist services? Never 08/08/2021 Do you belong to any clubs o r organizations such as gnosticism groups, unions, fraternal or athletic groups, or [...] Answer Date Recorded PHQ-2 Score 0 07/11/2021 [facility] of Occupat ional [facility] - Occupational Stress Questionnaire Answer Date Recorded [...] place to sleep or slept in a chcf (including now)? No 08/08/2021 Nutrition Answer Date [...] Sex Assigned at Female 07/11/2021 2:45 PM SEASONING SPRAYER Legal Sex Female 4:02 PM SEASONING SPRAYER Gender Identity Female 07/11/2021 2:45 PM SEASONING SPRAYER Sexual Orientation Straight 07/11/2021 2: 45 PM SEASONING SPRAYER Last Filed Vital Signs Vital Sign Reading Time Taken Comments Blood Pressure 127/79 03/26/2024 9:36 AM CDT Pulse 82 03/26/2024 9:36 AM CDT Temperature 36.4 C (97.5 F) 03/26/2024 9:36 AM CDT Respiratory Rate 16 07/11/2021 2:35 PM SEASONING SPRAYER Oxygen Saturation 98% 03/26/2024 9:36 AM CDT [...] Name Priority Date/Time Associated Diagnosis Comments PATHOLOGY INJURY/SAFETY HAZARD ASSESSMENT CYTOLOGY Routine 08/14/2016 12:00 AM SEASONING SPRAYER CHOLESTEROL, TOTAL, S Routine 11/25/2013 3:35 PM CDT from Last 3 Months or Most Recently Relevant to Health Maintenance Results * Pathology INJURY/SAFETY HAZARD ASSESSMENT Cytology (08/14/2016 12:00 AM SEASONING SPRAYER) 08/14/2016 Narrative [facility] - 08/23/2016 2:11 PM SEASONING SPRAYER [facility] in [address] [place] [id number] Patient Name: ABI JUAN Collected: 08/14/2016 Address: [facility]/State/Zip: [address] [place] [id number] Received: Reported: 08/15/2016 08/23/2016 Soc. Sec. #: /Age/Sex 1985 (Age: 31) F Physician(s): DANIELLE VIVEROS MD Copy To: [facility] [id number] [address] [place] [address] CYTOPATHOLOGY INJURY/SAFETY HAZARD ASSESSMENT REPORT FINAL CYTOLOGIC DIAGNOSIS Pap Smear - ThinPrep with HPV: NEGATIVE FOR INTRAEPITHELIAL LESION OR MALIGNANCY REACTIVE/REPARATIVE CHANGES. MODERATE INFLAMMATION. ENDOCERVICAL CELLS/COMPONENT PRESENT. SATISFACTORY SPECIMEN FOR EVALUATION. This specimen required a physician interpretation under CLIA 1987 Electronically Signed Out By [facility]/08/23/2016 HAIR ALTAMIRANO M.D. AM [place](ASCP) The Pap test is a screening procedure [...] ThinPrep Pap Test PreservCyt Solution HPV by 911 Dispatcher-Mediated Amplification (TMA) for E6/E7 viral messenger RNA [...] Most Recently Relevant to Health Maintenance Insurance [facility] Care Teams Supervisor Customer Services Relationship Specialty Start Date End Date Gissel Pimentel APRN, C.N.P. [address] [place] [id number] PCP - General 03/15/23
[2024-07-27] MEDS: CYCLOBENZAPRINE HCL 10 MG TABLET 5 MG PO (07:43)
[2024-07-27] MEDS: KETOROLAC 10 MG TABLET PO (07:43)
[2024-07-27 08:17] LABS: Basophils Absolute Auto 0.03 K/uL (0.00-0.30); Basophils Percent Auto 0.4 % (0.0-3.0); Chloride* 106 mmol/L (96-114); Eosinophils Absolute Auto 0.11 K/uL (0.00-0.50); Eosinophils Percent Auto 1.5 % (0.0-7.0); Hematocrit 40.5 % (33.0-51.0); Hemoglobin* 13.6 gm/dL (12.0-16.0); Immature Granulocytes Abs Auto 0.02 K/uL (0.00-0.30); Immature Granulocytes Pct Auto 0.3 %; Lymphocytes Absolute Auto 2.18 K/uL (0.90-2.90); Lymphocytes Percent Auto 28.8 % (20-44); Mean Corpuscular HGB Conc 34 gm/dL (32-36); Mean Corpuscular Hemoglobin 30 pg (26-34); Mean Corpuscular Volume 89 fL (80-100); Monocytes Percent Auto 5.6 % (0.0-11.0); Neutrophils Percent Auto 63.4 % (42.0-72.0); Platelet Count* 300 K/uL (140-440); Potassium* 4.2 mmol/L (3.6-5.1); RDW Coefficient of Variation % 12.7 % (11.5-15.5); Red Blood Count 4.54 m/uL (4.00-5.20); Sodium* 138 mmol/L (135-149); White Blood Count* 7.56 K/uL (4.50-11.00)
[2024-07-27 08:19] LABS: Creatinine* 0.6 mg/dL (0.5-1.5); Est. Creatinine Clearance* 95.93; Estimated Glomerular Filt Rate 118 ml/min
[2024-07-27 08:20] LABS: Anion Gap 8 mEq/L (7-15); Blood Urea Nitrogen* 12 mg/dL (5-24); Carbon Dioxide* 24 mmol/L (20-32); Glucose* 99 mg/dL (60-115)
[2024-07-27 08:32] LABS: D Dimer Quantitative* < 0.27 ug/ml (0.00-0.50); Slide Review Reflex No
[2024-07-27 08:34] LABS: NT Pro B Type NatriureticPept* 83 pg/mL
== END 2024-07-27 09:28 | disposition home or self-care (01) ==
PROVIDERS: Emergency Provider Family Medicine
DX: R09.1 Pleurisy (principal); R07.9 Chest pain, unspecified
CPT/HCPCS: 36415; 71046; 80048; 83880; 84484; 85025; 85379; 99284; A9270